=== PATIENT | female | born 1975 | race Caucasian/White ===

== ENCOUNTER 2017-09-11 17:25 | Emergency (ER) | payer OTHER ==
[~2017-09-11] VITALS: Ht 157.5 cm; Wt 79.5 kg
[~2017-09-11 17:25] MED LIST: CARAFATE 1GM1 G PO; CIPRO 500MG TA500 MG PO; DESYREL 100MG100 MG PO; FERROUS SULFATE27 MG PO; KLONOPIN2 MG PO; MEVACOR10 MG PO; MULTIPLE VITAMI1 CAP PO; MULTIVITAMIN FO1 CAP PO; PERCOCET 325 MG1 TA2 PO; PROBIOTIC FORMU1 CAP PO; PYRIDIUM 100MG100 MG PO; QUESTRAN4 GM/9 GM PO; REGLAN 10MG10 MG/TAB PO; TOPAMAX 100MG100 M1 PO; [UNRECOGNIZED DRUG - OTHER] PO
[2017-09-11 17:36] VITALS: BP 114/88; TEMP 98.7
[2017-09-11] MEDS ORDERED: XANAX 1MG1 MG PO (18:53)
[2017-09-11] MEDS ORDERED: RESTORIL30 MG PO (18:53)
[2017-09-11 19:49] LABS: BASO % 0.6 % (0.0-2.0); EOS # 0.1 (0.0-0.7); EOS % 1.5 % (0-4.0); GRAN # 2.8 (1.4-6.5); GRAN % 59.9 % (42.2-75.2); LYMPH # 1.4 (1.2-3.4); LYMPH % 30.2 % (20.0-51.0); MEAN CELL VOLUME 96 fl (80.0-100.0); MEAN CORPUSCULAR HGB CONC 34 g/dl (33.0-37.0); MEAN PLATELET VOLUME 8.5 fl (7.4-10.4); MONO # 0.4 (0.1-0.6); MONO % 7.6 % (1.7-9.3); PLATELET COUNT 230 K/mm3 (130-400); RED BLOOD COUNT 3.63 M/mm3 (4.10-5.30); REDCELL DISTRIBUTION WIDTH-CV 11.6 % (11.5-14.5)
[2017-09-11 19:50] LABS: HEMATOCRIT 34.7 % (37.0-47.0); HEMOGLOBIN 11.9 g/dl (12.5-16.0); MEAN CORPUSCULAR HEMOGLOBIN 33 pg (27.0-31.0)
[2017-09-11 19:58] LABS: ALBUMIN 4.3 gm/dL (3.5-5.0); BILIRUBIN,TOTAL 0.2 mg/dL (0.0-1.0); CALCIUM 8.7 mg/dL (8.4-10.2); CREATININE, serum 0.69 mg/dL (0.52-1.25); TOTAL PROTEIN 7.4 gm/dL (6.4-8.2)
[2017-09-11] MEDS ORDERED: ZITHROMAX Z PA250 MG PO (20:33)
[2017-09-11 20:51] VITALS: PULSE 102
== END 2017-09-11 20:51 | disposition home or self-care (01) ==
LOC: COL.ER 17:25
PROVIDERS: Nurse Practitioner
DX: J20.9 Acute bronchitis, unspecified (principal); K21.9 Gastro-esophageal reflux disease without esophagitis; F41.9 Anxiety disorder, unspecified; F17.210 Nicotine dependence, cigarettes, uncomplicated; Z90.710 Acquired absence of both cervix and uterus; Z90.89 Acquired absence of other organs; Z98.890 Other specified postprocedural states; Z88.6 Allergy status to analgesic agent

== ENCOUNTER → 2017-11-28 | Outpatient (CLI) | payer OTHER ==
[~2017-11-28] MED LIST changes: +RESTORIL30 MG PO; +XANAX 1MG1 MG PO; +ZITHROMAX Z PA250 MG PO
== END ==
LOC: COL.RAD 13:35
DX: H53.40 Unspecified visual field defects (principal)

== ENCOUNTER 2022-03-05 20:46 | Emergency (ER) | payer MEDICARE ==
[~2022-03-05] VITALS: Ht 157.5 cm; Wt 71.4 kg
[2022-03-05 20:52] VITALS: TEMP 97.2
[2022-03-05] MEDS ORDERED: MEDROL 4MG DOSPA4 MG PO (21:42)
[2022-03-05 21:51] VITALS: BP 138/72; PULSE 91
== END 2022-03-05 21:54 | disposition home or self-care (01) ==
LOC: COL.ER 20:46
DX: M79.631 Pain in right forearm (principal); F17.200 Nicotine dependence, unspecified, uncomplicated; Z28.310 Unvaccinated for COVID-19
CPT/HCPCS: J7512